=== PATIENT | male | born 1975 | race Caucasian/White ===

== ENCOUNTER → 2018-06-12 | Outpatient (CLI) | payer BC, OTHER ==
--- NOTE | 2018-06-12 15:25 | RAD ---
EXAM DESCRIPTION: Hand,Left 3 Views CLINICAL HISTORY: PAIN IN LEFT HAND AND PAIN IN LEFT FINGER (S) COMPARISON: None Available. TECHNIQUE: AP, LATERAL, AND OBLIQUE FINDINGS: The visualized bones appear well mineralized. No acute fracture or dislocation. The soft tissues appear grossly unremarkable. Degenerative changes are identified in the first carpometacarpal, radiocarpal, distal radioulnar, first metacarpophalangeal and interphalangeal joints. There is fixed flexion deformity of the proximal interphalangeal joint of the fourth digit. Tiny 2 mm foreign body is identified in the soft tissues between the second and third metacarpal. IMPRESSION: Degenerative changes are identified in the first carpometacarpal, radiocarpal, distal radioulnar, first metacarpophalangeal and interphalangeal joints. There is fixed flexion deformity of the proximal interphalangeal joint of the fourth digit. Tiny 2 mm foreign body is identified in the soft tissues between the second and third metacarpal. Electronically signed by: Peg Cevallos MD 06/12/2018 3:22 PM [facility]
--- NOTE | 2018-06-12 15:38 | RAD ---
EXAM DESCRIPTION: Fingers,Left CLINICAL HISTORY: 42 years Male, PAIN IN LEFT HAND AND PAIN IN LEFT FINGER (S) COMPARISON: None. TECHNIQUE: 3 views of the left fourth digit were obtained. FINDINGS: Flexion deformity of the proximal interphalangeal joint of the fourth digit is noted. Degenerative changes are identified in the interphalangeal joints as described on the hand radiograph. IMPRESSION: Flexion deformity of the proximal interphalangeal joint of the fourth digit is noted. Degenerative changes are identified in the interphalangeal joints as described on the hand radiograph. Electronically signed by: Peg Cevallos MD 06/12/2018 3:35 PM [facility]
== END ==
LOC: RAD 08:45
PROVIDERS: ATTEND Orthopaedic Surgery
DX: M79.642 Pain in left hand (principal); M79.645 Pain in left finger(s); M21.242 Flexion deformity, left finger joints; M79.5 Residual foreign body in soft tissue

== ENCOUNTER → 2018-06-23 | Outpatient (CLI) | payer BC ==
--- NOTE | 2018-06-23 12:42 | RAD ---
EXAM DESCRIPTION: Chest,2 Views CLINICAL HISTORY: ENCOUNTER FOR OTHER SPECIFIED SPECIAL EXAMINATIONS COMPARISON: None TECHNIQUE: PA/lateral FINDINGS: There is no acute appearing cardiac or pulmonary abnormality. Heart size is normal with normal pulmonary vascularity. No pleural effusion or pneumothorax. Lungs are clear with no consolidating infiltrate. Lateral view shows intact sternum and T-spine. IMPRESSION: No acute process is identified in the chest. Electronically signed by: Turner Newsome MD 06/23/2018 12:39 PM [employer]
== END ==
LOC: YCFC.O 11:13
PROVIDERS: ATTEND Family Medicine
DX: Z01.89 Encounter for other specified special examinations (principal)

== ENCOUNTER → 2018-07-09 | Outpatient (CLI) | payer BC | LOC: RESP 09:22 | PROVIDERS: ATTEND Orthopaedic Surgery | DX: Z01.818 Encounter for other preprocedural examination (principal) ==

== ENCOUNTER → 2019-09-28 | Outpatient (CLI) | payer BC | LOC: LAB.O 12:26 | PROVIDERS: ATTEND Internal Medicine | DX: L40.52 Psoriatic arthritis mutilans (principal) ==